=== PATIENT | female | born 1955 | race Caucasian/White ===

== ENCOUNTER → 2022-01-25 | Day surgery (SDC) | payer MEDICARE, MEDICAID | LOC: MSO 10:28 | DX: H26.9 Unspecified cataract (principal) | CPT/HCPCS: 00142; J0171; J2250; V2632 ==

== ENCOUNTER → 2022-03-01 | Day surgery (SDC) | payer MEDICARE, MEDICAID | END | disposition home or self-care (01) | LOC: MSO 06:58 | DX: H26.9 Unspecified cataract (principal) | CPT/HCPCS: 00142; J0171; J2250; V2632 ==